=== PATIENT | female | born 1965 | race African-American/Black ===

== ENCOUNTER 2019-06-01 09:55 | Emergency (ER) | payer MEDICAID ==
[~2019-06-01] VITALS: Ht 167.6 cm; Wt 74.0 kg
[2019-06-01] MEDS ORDERED: DIPHENHYDRAMINE 25MG CAPSULE PO ONE (11:15)
[2019-06-01] MEDS ORDERED: CEPHALEXIN 250MG CAPSULE PO ONE (11:15)
[2019-06-01 12:05] VITALS: BP 127/82
== END 2019-06-01 12:07 | disposition home or self-care (01) ==
LOC: ER 10:21
DX: T78.40XA Allergy, unspecified, initial encounter (principal); L03.90 Cellulitis, unspecified; F17.210 Nicotine dependence, cigarettes, uncomplicated; Z88.8 Allergy status to other drugs, medicaments and biological substances; X58.XXXA Exposure to other specified factors, initial encounter
CPT/HCPCS: 99283; 99406; Q0163; 81025